=== PATIENT | female | born 2005 | race Caucasian/White ===

== ENCOUNTER 2023-04-24 20:48 | Emergency (ER) | payer OTHER, BC ==
[~2023-04-24] VITALS: Ht 162.6 cm; Wt 77.1 kg
[~2023-04-24 20:48] MED LIST: AMOX50SU PO; CODACEE120 PO; ONDA4 PO; ONDA4ODT MM; SULTRIEL PO
[2023-04-24 21:07] VITALS: BP 144/88
== END 2023-04-24 22:15 | disposition home or self-care (01) ==
LOC: ER 20:48
DX: S43.102A Unspecified dislocation of left acromioclavicular joint, initial encounter (principal); V89.9XXA Person injured in unspecified vehicle accident, initial encounter
CPT/HCPCS: 23545; 73030; 99283-25; A9270; J1885